=== PATIENT | male | born 1950 | race Caucasian/White ===

== ENCOUNTER 2018-10-22 12:47 | Outpatient (CLI) | payer MEDICARE, OTHER ==
[2018-10-22 13:15] LABS: Hemoglobin 16.2 g/dL (14.0-18.0); Mean Corpuscular HGB CONC 32.4 g/dL (32.0-36.0); Mean Corpuscular Volume 95.6 fL (78.0-98.0); Mean Platelet Volume 6.9 fL (7.4-10.4); Platelet Count 316 thou/uL (130-400); RBC Distribution Width 12.2 % (11.5-14.5); Red Blood Cell (RBC) Count 5.22 mill/uL (4.70-6.10); White Blood Cell (WBC) Count 6.3 thou/uL (4.8-10.8)
[2018-10-22 13:20] LABS: PTT 29.7 SEC (22.9-36.1); Prothrombin Time 13.6 SEC (12.0-14.7)
[2018-10-22 13:22] LABS: Bilirubin Negative (Negative); Blood, Urine Negative (Negative); Clarity CLEAR (Clear); Glucose, Urine (Dipstick) Negative (Negative); Leukocyte Negative (Negative); Nitrite Negative (Negative); Protein, Urine (Dipstick) Negative (Neg-Trace); Specific Gravity, Urine 1.016 (1.002-1.036); Urobilinogen 0.2 mg/dL (0.2-1.0)
[2018-10-22 13:24] LABS: Bacteria/HPF None Seen HPF (None Seen); Hyaline Casts/LPF 0-3 HYALINE CAST LPF (0-3 Hyaline); RBC/HPF 0-3 HPF (0-3); Squamous Epithelial None Seen HPF (0-3); WBC/HPF 0-3 HPF (0-3)
[2018-10-22 13:36] LABS: Anion Gap 12 mmol/L (10-20); BUN (Urea Nitrogen) 12 mg/dL (8.4-25.7); Calc. Creatinine Clearance 0 mL/min (70-130); Calcium 9.3 mg/dL (7.8-10.44); Carbon Dioxide 26 mmol/L (23-31); Chloride 106 mmol/L (98-107); Estimated GFR-MDRD Greater than 90; Glucose 97 mg/dL (80-115); Potassium 4.2 mmol/L (3.5-5.1); Sodium 140 mmol/L (136-145)
--- NOTE | 2018-10-25 22:35 | EKG ---
Test Reason : Blood Pressure : / mmHG Vent. Rate : 060 BPM Atrial Rate : 060 BPM P-R Int : 182 ms QRS Dur : 100 ms QT Int : 392 ms P-R-T Axes : 049 035 045 degrees QTc Int : 392 ms Normal sinus rhythm Normal ECG No previous ECGs available Confirmed by Brandon WOOTEN ([id number]) on 10/25/2018 10:35:29 PM Referred By: DENI Confirmed By:Brandon WOOTEN
== END 2018-10-22 12:48 | disposition home or self-care (01) ==
LOC: LABBT 12:47
PROVIDERS: ATTEND Urology
DX: Z01.818 Encounter for other preprocedural examination (principal); N40.1 Benign prostatic hyperplasia with lower urinary tract symptoms
CPT/HCPCS: 80048; 81001; 85027; 85610; 85730; 87086; 93005; 93010

== ENCOUNTER 2018-11-03 09:13 | Day surgery (SDC) | payer MEDICARE, OTHER ==
[2018-10-22 12:35] VITALS: BMI 25.0
[2018-11-03] MEDS ORDERED: Fentanyl 100 MCG/2 ML VIAL ONE ×3 (12:33→15:47)
[2018-11-03] MEDS ORDERED: Levofloxacin 500 mg/D5W 100 ml Premix Bag ONE (12:43)
[2018-11-03] MEDS ORDERED: Phenazopyridine HCl 97.5 MG TABLET ONE (14:19)
[2018-11-03] MEDS ORDERED: Oxybutynin 5 MG TAB ONE (14:19)
[2018-11-03] MEDS ORDERED: ePHEDrine 50 MG/ML VIAL ONE (16:00)
[2018-11-03] MEDS ORDERED: Glycopyrrolate 0.2 MG/ML 5 ML SYRINGE ONE (16:00)
[2018-11-03] MEDS ORDERED: Lidocaine 1% PF 5 ML VIAL ONE (16:00)
[2018-11-03] MEDS ORDERED: Ondansetron PF 4 MG/2 ML Vial ONE (16:00)
[2018-11-03] MEDS ORDERED: PROPOFOL 200 MG/20 ML VIAL ONE (16:00)
[2018-11-03] MEDS ORDERED: HYDROcodone/Acetaminophen 5/325 mg Tablet ONE (17:18)
--- NOTE | 2018-11-03 21:06 | OP ---
DATE OF PROCEDURE: 11/03/2018 PREOPERATIVE DIAGNOSES: 1. A 68-year-old male with history of elevated PSA, prostate biopsy negative for malignancy. 2. BPH with incomplete void. POSTOPERATIVE DIAGNOSES: 1. A 68-year-old male with history of elevated PSA, prostate biopsy negative for malignancy. 2. BPH with incomplete void. PROCEDURES PERFORMED: Cystoscopy, UroLift implant x6, fulguration of prostatic urethra. ANESTHESIA: LMA. COMPLICATIONS: None apparent. DISPOSITION: To recovery room in stable condition. DRAINS: An 18-[place] three way with CBI port plugged. Catheter attached to gravity bag. INDICATIONS FOR PROCEDURE AND HISTORY: Mr. Jones is a pleasant 68-year-old male with history of elevated PSA, biopsy negative for malignancy. He does have moderate to severe obstructing prostate with incomplete void of postvoid residual 150 mL. He has been on dual medical therapy and desires to proceed with surgical intervention. The patient requested a UroLift due to minimal sexual side effects. Risks and complications of the procedure were reviewed with him in detail including, but not limited to, bleeding, pain, infection, encrustation of implant, migration, urolithiasis, chronic pain, and all questions were answered to his satisfaction. He desired to proceed. DESCRIPTION OF PROCEDURE: After an informed consent was signed, the patient was taken to the operating room, placed in a dorsal lithotomy position with the genital area prepped and draped in the usual surgical sterile fashion. We first performed a cystoscopy with a 20-[place] scope with an obturator bridge. Cystoscopy demonstrated the ureteral orifice approximately 3 to 4 mm from the bladder neck with no intravesical median lobe. He does have a component of a median lobe, however, remains within the prostatic urethra causing a mass effect at the bladder neck. We first engaged the lateral lobe with UroLift delivery device. The first treatment was performed on the patient's left side approximately 1.5 cm distal to the bladder neck. The tip of the delivery device was angled laterally approximately 20 degrees in this position to compress the lateral lobe. Trigger was pulled thereby deploying the needle containing the implant. Needle was then retracted allowing one end of the implant to be delivered to the capsular surface of the prostate. The implant was then tensioned to assure capsular seeding and removal of slack on the monofilament. The device was then angled backwards to the midline and slowly advance and until cystoscopic verification of the monofilament being centered in the delivery [place]. The urethra end piece was then affixed to the monofilament, thereby tailing the size of the implant. The excess filament was then severed. The delivery device was then readvanced into the bladder. There was no evidence of ureteral injury or foreign body within the bladder. We then performed the UroLift implant on both lobes relieving the obstruction of the lateral lobes. We did place a total of 6 implants, one of the implants was placed to relieve the obstruction of the median lobe. We retracted the median lobe component, which remains in the prostatic urethra, laterally, deviating the median lobe to the lateral aspect of the prostate and implant delivered. No evidence of bladder injury, foreign body, or suture nidus was seen in the bladder. His prostate had some varicosities. He did have some oozing from the prostate. I did transition to a regular 21-[place] cystoscope and using endoscopic Bovie, I cauterized the anterior bladder neck region which appeared to have some oozing. Minimal cautery was utilized. He had some venous oozing, which I anticipate it will stop in the next 24 to 48 hours. A 20-[place] Womack catheter was placed without any issues to the level of the bladder, 30 mL insufflated. The CBI port was plugged. The catheter attached to leg bag. I will monitor the patient postop. Urine output remains relatively okay with minimal hematuria component. The patient will be discharged with indwelling Womack catheter and will present tomorrow for a voiding trial. He is discharged with ciprofloxacin for 5 days and Colace p.r.n. Job ID: [id number] [facility]
== END 2018-11-03 17:50 | disposition home or self-care (01) ==
LOC: SDC 09:13
PROVIDERS: ATTEND Urology
PROC: 0T7D8DZ Dilation of Urethra with Intraluminal Device, Via Natural or Artificial Opening Endoscopic (ICD-10-PCS; principal; 2018-11-03)
DX: N40.1 Benign prostatic hyperplasia with lower urinary tract symptoms (principal); R39.14 Feeling of incomplete bladder emptying; N52.9 Male erectile dysfunction, unspecified; F41.9 Anxiety disorder, unspecified; Z79.899 Other long term (current) drug therapy; Z98.890 Other specified postprocedural states
CPT/HCPCS: J1956; J2001; J2405; J2704; J3010; J3490

== ENCOUNTER 2019-06-09 10:24 | Emergency (ER) | payer MEDICARE, OTHER ==
--- NOTE | 2019-06-09 11:08 | RAD ---
EXAM: Chest PA and lateral: HISTORY: Cough COMPARISON: none FINDINGS: Lung denis are clear. Vascular markings are normal. Heart and mediastinum appear unremarkable. Osseous structures are unremarkable. IMPRESSION: No acute finding
== END 2019-06-09 12:08 | disposition home or self-care (01) ==
LOC: ERS 10:24
DX: S20.212A Contusion of left front wall of thorax, initial encounter (principal); W18.30XA Fall on same level, unspecified, initial encounter
CPT/HCPCS: 71046

== ENCOUNTER 2019-08-08 14:29 | Outpatient (CLI) | payer MEDICARE, OTHER ==
[~2019-08-08 14:29] MED LIST: Magnevist 469MG/ML 20 ML VIAL ONE
--- NOTE | 2019-08-08 16:06 | MRI ---
EXAM: MRI of the pelvis/prostate without and with contrast HISTORY: Prostate cancer COMPARISON: None TECHNIQUE: Multiplanar multisequence MR images were obtained of the pelvis without and with IV contra st. Evaluation of this exam was performed with a [employer] workstation. FINDINGS: Central gland: Moderate hypertrophy of the central gland consistent with BPH. There are areas of susc eptibility artifact which may represent metal within the prostate. These produce artifact slightly limiting this exam, particularly on the diffusion sequence. No suspicious low T2 signal lesion is see n. Peripheral zone: No restricted diffusion is seen. No low signal on ADC map. Seminal vesicles: Intact without abnormality Neurovascular bundles: Intact Pelvic lymph nodes: No pelvic adenopathy Other visualized intrapelvic structures: Scattered diverticula in the colon. Osseous structures: No marrow signal abnormality IMPRESSION: PI-RADS Category 2-low likelihood that a clinically significant cancer is present.
== END 2019-08-08 14:30 | disposition home or self-care (01) ==
LOC: TBSIIMAG 14:29
PROVIDERS: ATTEND Urology
DX: R97.20 Elevated prostate specific antigen [PSA] (principal)
CPT/HCPCS: 72197; A9579

== ENCOUNTER 2021-07-03 13:22 | Emergency (ER) | payer MEDICARE, OTHER ==
[2021-07-03] MEDS ORDERED: Ketorolac Tromethamine 30 MG/ML VIAL ONE (16:35)
== END 2021-07-03 17:02 | disposition home or self-care (01) ==
LOC: ERS 13:22
DX: M79.672 Pain in left foot (principal)
CPT/HCPCS: 96372; J1885

== ENCOUNTER 2024-08-04 12:32 | Outpatient (CLI) | payer MEDICARE, OTHER ==
[2024-08-04] MEDS ORDERED: Barium Sulfate 96% 176 GM BOT (xray ONLY) ONE (13:01)
[2024-08-04] MEDS ORDERED: E-Z-HD 98% W/W 340GM BOT (x-ray ONLY) ONE (13:01)
== END 2024-08-04 12:33 | disposition home or self-care (01) ==
LOC: RAD 12:32
PROVIDERS: ATTEND Physician Assistant Medical
DX: K21.9 Gastro-esophageal reflux disease without esophagitis (principal); R13.19 Other dysphagia; R11.10 Vomiting, unspecified; K44.9 Diaphragmatic hernia without obstruction or gangrene
CPT/HCPCS: 74220

== ENCOUNTER 2025-06-21 08:17 | Outpatient (CLI) | payer MEDICARE, OTHER ==
[2025-06-21 08:57] LABS: Estimated GFR - POC 80.0
[2025-06-21] MEDS ORDERED: Iopamidol 370 76% 100 ML VIAL ONE (09:16)
== END 2025-06-21 08:18 | disposition home or self-care (01) ==
LOC: CT 08:17
PROVIDERS: ATTEND Family Medicine
DX: Q45.3 Other congenital malformations of pancreas and pancreatic duct (principal); K57.30 Diverticulosis of large intestine without perforation or abscess without bleeding; K44.9 Diaphragmatic hernia without obstruction or gangrene; K76.0 Fatty (change of) liver, not elsewhere classified; K86.2 Cyst of pancreas
CPT/HCPCS: 36415; 74160; 82565